=== PATIENT | female | born 2000 | race Caucasian/White ===

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

== ENCOUNTER 2021-10-05 23:29 | Emergency (ER) | payer OTHER ==
[~2021-10-05] VITALS: Ht 165.1 cm; Wt 131.8 kg
[~2021-10-05 23:29] MED LIST changes: +GUAIF10 PO; -MOTRIN
[2021-10-06] MEDS ORDERED: PERTUSS(ACELL),DIPH,TET VAC/PF 0.5 ML SYRINGE IM. ONE (00:45)
[2021-10-06] MEDS ORDERED: IBUPROFEN 600 MG TABLET PO ONE (00:45)
[2021-10-06] MEDS ORDERED: DOXYCYCLINE HYCLATE 100 MG TABLET PO ONE (00:45)
[2021-10-06 02:00] VITALS: BP 119/74
== END 2021-10-06 02:11 | disposition home or self-care (01) ==
LOC: EMS 23:30
DX: S91.331A Puncture wound without foreign body, right foot, initial encounter (principal); W45.0XXA Nail entering through skin, initial encounter; Y93.89 Activity, other specified; Y92.89 Other specified places as the place of occurrence of the external cause; Y99.8 Other external cause status
CPT/HCPCS: 90471; 90715; 99283

== ENCOUNTER 2021-10-09 11:39 | Emergency (ER) | payer OTHER ==
[~2021-10-09] VITALS: Ht 165.1 cm; Wt 129.6 kg
[2021-10-09 11:40] VITALS: BP 126/73
== END 2021-10-09 12:58 | disposition left against medical advice (07) ==
LOC: EMS 11:57
DX: M54.9 Dorsalgia, unspecified (principal); Z53.21 Procedure and treatment not carried out due to patient leaving prior to being seen by health care provider

== ENCOUNTER 2022-05-07 23:29 | Emergency (ER) | payer OTHER ==
[~2022-05-07] VITALS: Ht 165.1 cm; Wt 122.7 kg
[2022-05-07 23:33] VITALS: BP 132/87
[2022-05-07 23:58] LABS: BASOPHILS % (AUTO) 0.5 % (0.0-2.0); EOSINOPHILS % (AUTO) 1.8 % (1.0-6.0); HEMATOCRIT 41.2 % (36-46); HEMOGLOBIN 13.9 g/dL (12.0-16.0); LYMPHOCYTES # (AUTO) 1.9 K/uL (1.0-4.8); LYMPHOCYTES % (AUTO) 23.1 % (22.0-44.0); MEAN CORPUSCULAR HEMOGLOBIN 30.4 pg (26.0-34.0); MEAN CORPUSCULAR HGB CONC 33.6 G/dL (31.0-37.0); MEAN CORPUSCULAR VOLUME 90 fL (80-100); MONOCYTES # (AUTO) 0.5 K/uL (0.1-1.0); MONOCYTES % (AUTO) 6.3 % (2.0-9.0); NEUTROPHILS # (AUTO) 5.7 K/uL (1.8-7.7); NEUTROPHILS % (AUTO) 68.3 % (40.0-70.0); PLATELET COUNT (AUTO) 230 K/uL (150-450); RED BLOOD CELL COUNT(AUTO) 4.57 MIL/uL (4.00-5.20)
[2022-05-08] MEDS ORDERED: ACETAMINOPHEN 500 MG TABLET PO ONE
[2022-05-08 00:07] LABS: ANION GAP 9 mmol/L (8-16); CALCIUM, TOTAL 9.3 mg/dL (8.8-10.5); CARBON DIOXIDE 26 mmol/L (22-29); CHLORIDE 106 mmol/L (98-107); CREATININE 0.82 mg/dL (0.60-1.30); GLUCOSE,RANDOM 91 mg/dL (70-110); POTASSIUM 3.6 mmol/L (3.5-5.1); SODIUM SERUM 141 mmol/L (136-145); UREA NITROGEN, BLOOD 10 mg/dL (7-18)
[2022-05-08 00:08] LABS: GLOMERULAR FILTR. RATE CALC > 60 mL/min (>60)
[2022-05-08 00:18] LABS: ALANINE AMINOTRANSFERASE 64 U/L (12-78); ALBUMIN 3.9 g/dL (3.4-5.0); ALKALINE PHOSPHATASE 62 U/L (46-116); ASPARTATE AMINOTRANSFERASE 45 U/L (15-37); BILIRUBIN,TOTAL 0.7 mg/dL (0.1-1.0); HCG,QUANTITATIVE < 1 mIU/mL (0-6); TOTAL PROTEIN, SERUM 7.7 g/dL (6.4-8.2)
[2022-05-08 00:24] LABS: COVID AG,FIA SOURCE NASOPHARYNGEAL
[2022-05-08 00:38] LABS: RAPID GROUP A STREP NEGATIVE (NEGATIVE)
[2022-05-08 00:47] LABS: INFLUENZA TYPE A NEGATIVE FOR TYPE A (NEGATIVE); INFLUENZA TYPE B NEGATIVE FOR TYPE B (NEGATIVE)
== END 2022-05-08 01:41 | disposition home or self-care (01) ==
LOC: EMS 23:32
DX: B34.9 Viral infection, unspecified (principal); Z20.822 Contact with and (suspected) exposure to COVID-19
CPT/HCPCS: 80053; 84702; 85025; 87430; 87804; 99283

== ENCOUNTER 2023-05-05 20:10 | Emergency (ER) | payer OTHER ==
[~2023-05-05] VITALS: Ht 167.6 cm; Wt 125.0 kg
[2023-05-05 20:43] LABS: COVID AG,FIA SOURCE NASAL SWAB
[2023-05-05 21:09] LABS: RAPID GROUP A STREP NEGATIVE (NEGATIVE)
[2023-05-05 21:13] LABS: INFLUENZA TYPE A NEGATIVE FOR TYPE A (NEGATIVE); INFLUENZA TYPE B NEGATIVE FOR TYPE B (NEGATIVE)
[2023-05-05 23:26] VITALS: BP 135/83; PULSE 89; RESP 18; TEMP 99.1
[2023-05-06] MEDS ORDERED: LORA10TA7 PO (00:11)
[2023-05-06] MEDS ORDERED: IBUP-1492 PO (00:11)
[2023-05-06] MEDS ORDERED: DEXAMETHASONE SOD PHOS 4 MG/ML 5 ML VIAL IM ONE (00:15)
== END 2023-05-06 03:12 | disposition home or self-care (01) ==
LOC: EMS 20:16
DX: J02.8 Acute pharyngitis due to other specified organisms (principal); Z20.822 Contact with and (suspected) exposure to COVID-19
CPT/HCPCS: 99283; 87426; 87430; 87804; 96372; J1100

== ENCOUNTER 2023-06-02 14:26 | Emergency (ER) | payer OTHER ==
[~2023-06-02] VITALS: Ht 162.6 cm; Wt 97.7 kg
[~2023-06-02 14:26] MED LIST changes: +IBUP-1492 PO; +LORA10TA7 PO
[2023-06-02 14:30] VITALS: TEMP 98.2
[2023-06-02 15:35] VITALS: BP 119/68; PULSE 90; RESP 18
[2023-06-02 16:03] LABS: BASOPHILS % (AUTO) 0.5 % (0.0-2.0); EOSINOPHILS % (AUTO) 2.2 % (1.0-6.0); HEMATOCRIT 39.9 % (36-46); HEMOGLOBIN 13.7 g/dL (12.0-16.0); LYMPHOCYTES % (AUTO) 23.1 % (22.0-44.0); MEAN CORPUSCULAR HEMOGLOBIN 31.3 pg (26.0-34.0); MEAN CORPUSCULAR HGB CONC 34.3 G/dL (31.0-37.0); MEAN CORPUSCULAR VOLUME 91 fL (80-100); MONOCYTES # (AUTO) 0.8 K/uL (0.1-1.0); NEUTROPHILS # (AUTO) 5.6 K/uL (1.8-7.7); NEUTROPHILS % (AUTO) 65.2 % (40.0-70.0); PLATELET COUNT (AUTO) 228 K/uL (150-450); RED BLOOD CELL COUNT(AUTO) 4.37 MIL/uL (4.00-5.20)
[2023-06-02 16:11] LABS: ANION GAP 9 mmol/L (8-16); CALCIUM, TOTAL 9.3 mg/dL (8.8-10.5); CARBON DIOXIDE 25 mmol/L (22-29); CHLORIDE 103 mmol/L (98-107); CREATININE 0.91 mg/dL (0.60-1.30); GLOMERULAR FILTR. RATE CALC > 60 mL/min (>60); GLUCOSE,RANDOM 108 mg/dL (70-110); SODIUM SERUM 137 mmol/L (136-145)
[2023-06-02 16:22] LABS: ALANINE AMINOTRANSFERASE 55 U/L (12-78); ALBUMIN 3.8 g/dL (3.4-5.0); ALKALINE PHOSPHATASE 62 U/L (46-116); ASPARTATE AMINOTRANSFERASE 31 U/L (15-37); BILIRUBIN,TOTAL 0.4 mg/dL (0.1-1.0); HCG,QUANTITATIVE < 1 mIU/mL (0-6)
[2023-06-02] MEDS ORDERED: IOHEXOL 350 MG/ML 100 ML VIAL ONE (17:33)
== END 2023-06-02 17:40 | disposition left against medical advice (07) ==
LOC: EMS 14:26
DX: R22.0 Localized swelling, mass and lump, head (principal)
CPT/HCPCS: 99283; 80053; 84702; 85025; 36415; Q9967

== ENCOUNTER 2023-07-08 23:14 | Emergency (ER) | payer OTHER ==
[~2023-07-08] VITALS: Ht 165.1 cm; Wt 122.0 kg
[2023-07-08 23:23] VITALS: TEMP 98.5
[2023-07-09 00:01] LABS: GLUCOMETER DEV NAME(LOC) ERT.5; GLUCOSE,POINT OF CARE 81 MG/DL (70-110)
[2023-07-09] MEDS ORDERED: SODIUM CHLORIDE 0.9% 1,000 ML IV ONE (00:30)
[2023-07-09 01:27] LABS: BASOPHILS % (AUTO) 0.5 % (0.0-2.0); EOSINOPHILS % (AUTO) 1.1 % (1.0-6.0); HEMATOCRIT 37.2 % (36-46); HEMOGLOBIN 12.4 g/dL (12.0-16.0); LYMPHOCYTES # (AUTO) 2.2 K/uL (1.0-4.8); LYMPHOCYTES % (AUTO) 21.9 % (22.0-44.0); MEAN CORPUSCULAR HEMOGLOBIN 31.1 pg (26.0-34.0); MEAN CORPUSCULAR HGB CONC 33.4 G/dL (31.0-37.0); MEAN CORPUSCULAR VOLUME 93 fL (80-100); MONOCYTES # (AUTO) 0.6 K/uL (0.1-1.0); MONOCYTES % (AUTO) 5.8 % (2.0-9.0); NEUTROPHILS # (AUTO) 7.2 K/uL (1.8-7.7); NEUTROPHILS % (AUTO) 70.7 % (40.0-70.0); PLATELET COUNT (AUTO) 228 K/uL (150-450); WHITE BLOOD COUNT (AUTO) 10.1 K/uL (4.5-11.0)
[2023-07-09 01:39] LABS: ANION GAP 15 mmol/L (8-16); CARBON DIOXIDE 21 mmol/L (22-29); CHLORIDE 102 mmol/L (98-107); CREATININE 0.68 mg/dL (0.60-1.30); GLOMERULAR FILTR. RATE CALC > 60 mL/min (>60); GLUCOSE,RANDOM 93 mg/dL (70-110); POTASSIUM 3.5 mmol/L (3.5-5.1); SODIUM SERUM 138 mmol/L (136-145); UREA NITROGEN, BLOOD 13 mg/dL (7-18)
[2023-07-09 01:45] LABS: ALANINE AMINOTRANSFERASE 39 U/L (12-78); ALBUMIN 3.5 g/dL (3.4-5.0); ALKALINE PHOSPHATASE 51 U/L (46-116); ASPARTATE AMINOTRANSFERASE 35 U/L (15-37); BILIRUBIN,TOTAL 0.4 mg/dL (0.1-1.0); TOTAL PROTEIN, SERUM 7.2 g/dL (6.4-8.2)
[2023-07-09 01:49] LABS: TROPONIN I-HIGH SENSITIVITY Less Than 4 ng/L (<51)
[2023-07-09 02:48] LABS: COVID AG,FIA SOURCE NASAL SWAB
[2023-07-09 03:18] LABS: SARS-COV2 (COVID) ANTIGEN,FIA Negative (Negative)
[2023-07-09] MEDS ORDERED: ACETAMINOPHEN 500 MG TABLET PO ONE (03:45)
[2023-07-09 04:03] VITALS: BP 122/72; PULSE 98; RESP 18
== END 2023-07-09 04:08 | disposition home or self-care (01) ==
LOC: EMS 23:15
DX: R55 Syncope and collapse (principal); Z20.822 Contact with and (suspected) exposure to COVID-19
CPT/HCPCS: 70450; 71045; 80053; 82962; 84484; 84703; 85025; 87430; 93005; 99285; 36415-L1; 36415-TC

== ENCOUNTER 2024-05-31 15:43 | Emergency (ER) | payer OTHER ==
[~2024-05-31] VITALS: Ht 157.5 cm; Wt 97.7 kg
[2024-05-31 15:46] VITALS: BP 124/67; PULSE 84; RESP 18; TEMP 98.4
== END 2024-05-31 19:07 | disposition left against medical advice (07) ==
LOC: EMS 15:43
DX: R22.0 Localized swelling, mass and lump, head (principal); Z53.21 Procedure and treatment not carried out due to patient leaving prior to being seen by health care provider